=== PATIENT | female | born 1995 | race Two or more races ===

== ENCOUNTER 2024-05-28 04:33 | Inpatient (IN) | payer OTHER ==
[~2024-05-28] VITALS: Ht 149.9 cm; Wt 2.7 kg
[2024-05-28] MEDS ORDERED: FOLIC ACID20 MG PO (05:06)
[2024-05-28] MEDS ORDERED: PRENATABS RX T1 EACH PO (05:06)
[2024-05-28] MEDS ORDERED: CEFAZOLIN SODIUM 1,000 MG VIAL IV SCH ×2 (05:15→18:00)
[2024-05-28] MEDS ORDERED: RINGERS SOLUTION,LACTATED 1,000 ML IV SCH (05:15)
[2024-05-28] MEDS ORDERED: OXYTOCIN 10 UNITS/ML VIAL ONE ×2 (10:34→14:06)
[2024-05-28] MEDS ORDERED: ERYTHROMYCIN BASE 1 GM TUBE OP ONE ×2 (10:35→17:00)
[2024-05-28] MEDS ORDERED: CARBOPROST TROMETHAMINE 250 MCG/ML AMPUL IM ONE ×2 (11:39→17:00)
[2024-05-28] MEDS ORDERED: MEPERIDINE HCL/PF 50 MG/ML VIAL IM SCH ×2 (12:30→13:15)
[2024-05-28] MEDS ORDERED: OXYTOCIN 1,000 ML IV ONE (13:00)
[2024-05-28] MEDS ORDERED: PROMETHAZINE HCL 25 MG/ML AMPUL IV SCH (14:00)
[2024-05-28] MEDS ORDERED: PROMETHAZINE HCL 25 MG/ML AMPUL ONE (14:07)
[2024-05-28] MEDS ORDERED: OXYTOCIN 10 UNITS/ML VIAL IV ONE (17:00)
[2024-05-29] MEDS ORDERED: OxyCODONE HCL/APAP UD (PERCOCET) PO PRN (08:00)
[2024-05-29 08:59] LABS: HEMATOCRIT 33.2 % (36.0-45.00); HEMOGLOBIN 11.2 g/dL (12.0-15.00); MEAN CELL VOLUME 86.9 fL (80.00-100.00); MEAN CORPUSCULAR HEMOGLOBIN 29.3 pg (27.00-32.0); MEAN CORPUSCULAR HGB CONC 33.7 g/dl (32.0-36.0); PLATELET COUNT 228 K/uL (150-450); RED BLOOD COUNT 3.82 M/uL (4.00-6.00); RED CELL DISTRIBUTION WIDTH 13.4 % (11.5-14.5)
== END 2024-05-30 12:03 | disposition home or self-care (01) | DRG 788 ==
LOC: O/R 04:33 → LDR 04:33 → O/R 10:51 → OB/GYN 12:21
PROVIDERS: ADMIT Specialist; ATTEND Specialist
PROC: 4A1HXCZ Monitoring of Products of Conception, Cardiac Rate, External Approach (ICD-10-PCS; 2024-05-28)
PROC: 10D00Z1 Extraction of Products of Conception, Low, Open Approach (ICD-10-PCS; principal; 2024-05-28 12:15)
DX: O32.2XX0 Maternal care for transverse and oblique lie, not applicable or unspecified (principal); O99.824 Streptococcus B carrier state complicating childbirth; Z3A.37 37 weeks gestation of pregnancy; Z37.0 Single live birth; Z20.822 Contact with and (suspected) exposure to COVID-19